=== PATIENT | female | born 1980 | race Caucasian/White ===

== ENCOUNTER 2018-07-30 19:50 | Emergency (ER) | payer SELFPAY ==
[~2018-07-30] VITALS: Ht 162.6 cm; Wt 64.8 kg
[2018-07-30 19:58] VITALS: Ht 162.6 cm; Wt 64.8 kg
[2018-07-30] MEDS ORDERED: DIPHENHYDRAMINE 50 MG INJ IM ONE (22:30)
--- NOTE | 2018-07-30 22:30 | ERD ---
ER Documentation Chief Complaint Chief Complaint neck pain and headache started today HPI 38-year-old female presents history of anxiety and panic attacks. States that she had a panic attack 3 weeks ago and she went to the hospital. They gave her Ativan and she is since run out. She is now experiencing some nausea and vomiting as well as shakiness. States that she feels her highest reading as well. Denies any chest pain, shortness of breath, diaphoresis, wheezing, dyspnea, fevers. She also having trouble sleeping. Denies any suicidal homicidal ideation. Denies any hallucinations. ROS All systems reviewed and are negative except as per history of present illness. Medications Home Meds Active Scripts Zolpidem Tartrate* (Ambien*) 5 Mg Tablet, 5 MG PO HS PRN for INSOMNIA, #7 TAB Prov:ANJU JOHNSON 07/31/18 Hydroxyzine Hcl* (Hydroxyzine Hcl*) 50 Mg Tablet, 50 MG PO Q6 for anxiety, #40 TAB Prov:ANJU JOHNSON 07/31/18 PMhx/Soc Medical and Surgical Hx: pt denies Medical Hx, pt denies Surgical Hx Hx Alcohol Use: No Hx Substance Use: No Hx Tobacco Use: No Smoking Status: Never smoker Physical Exam Vitals Vital Signs Date Temp Pulse Resp B/P (MAP) Pulse Ox O2 O2 Flow FiO2 Time Delivery Rate 07/30/18 99.6 109 18 124/78 98 19:58 (93) Physical Exam Const: No acute distress Head: Atraumatic Eyes: Normal Conjunctiva ENT: Normal External Ears, Nose and Mouth. Neck: Full range of motion. No meningismus. Resp: Clear to auscultation bilaterally Cardio: Regular rate and rhythm, no murmurs Abd: Soft, non tender, non distended. Normal bowel sounds Skin: No petechiae or rashes Back: No midline or flank tenderness Ext: No cyanosis, or edema Neur: Awake and alert Psych: Normal Mood and Affect Result Diagram: 07/30/18 2306 07/30/18 230 Results 24 hrs Laboratory Tests Test 07/30/18 23:06 07/30/18 23:18 07/30/18 23:22 White Blood Count 9.4 10^3/ul Red Blood Count 4.38 10^6/ul Hemoglobin 12.8 g/dl Hematocrit 37.6 % Mean Corpuscular Volume 85.8 fl Mean Corpuscular Hemoglobin 29.2 pg Mean Corpuscular 34.0 g/dl Hemoglobin Concent Red Cell Distribution Width 11.6 % Platelet Count 293 10^3/UL Mean Platelet Volume 10.4 fl Immature Granulocytes % 0.300 % Neutrophils % 65.0 % Lymphocytes % 27.7 % Monocytes % 6.2 % Eosinophils % 0.6 % Basophils % 0.2 % Nucleated Red Blood Cells % 0.0 /100WBC Immature Granulocytes # 0.030 10^3/ul Neutrophils # 6.1 10^3/ul Lymphocytes # 2.6 10^3/ul Monocytes # 0.6 10^3/ul Eosinophils # 0.1 10^3/ul Basophils # 0.0 10^3/ul Nucleated Red Blood Cells # 0.0 10^3/ul Sodium Level 138 mmol/L Potassium Level 3.7 mmol/L Chloride Level 105 mmol/L Carbon Dioxide Level 25 mmol/L Anion Gap 8 Blood Urea Nitrogen 6 mg/dl Creatinine 0.58 mg/dl Est Glomerular Filtrat Rate mL/min > 60 mL/min Glucose Level 113 mg/dl Calcium Level 9.3 mg/dl Total Bilirubin 0.3 mg/dl Direct Bilirubin 0.00 mg/dl Indirect Bilirubin 0.3 mg/dl Aspartate Amino Transf (AST/SGOT) 17 IU/L Alanine 12 IU/L Aminotransferase (ALT/SGPT) Alkaline Phosphatase 73 IU/L Total Protein 8.4 g/dl Albumin 4.2 g/dl Globulin 4.20 g/dl Albumin/Globulin Ratio 1.00 Thyroid Stimulating Hormone (TSH) 0.983 MIU/L Bedside Urine pH (LAB) 6.0 Bedside Urine Protein (LAB) Negative Bedside Urine Glucose (UA) Negative Bedside Urine Ketones (LAB) Negative Bedside Urine Blood Trace-intact Bedside Urine Nitrite (LAB) Negative Bedside Urine Leukocyte Esterase Trace (L POC Beta HCG, Qualitative NEGATIVE Current Medications Medications Dose Sig/Jairo Start Time Status Last (Trade) Ordered Route PRN Stop Time Admin Dose Reason Admin 50 mg ONCE ONCE 07/30/18 DC 07/30/18 Diphenhydrami IM 22:30 22:48 ne HCl 07/30/18 22:31 (Benadryl) Procedures/MDM All labs were within normal limits. I have low suspicion for thyroid storm, acute psychosis, or any other emergent condition. Patient was given Benadryl in the ER and stated that helped her feel more calm. Patient discharged with short course of Ambien for insomnia as well as hydroxyzine to take as needed for anxiety. Patient given list of mental health clinics as well. Patient discharged with strict ER precautions. Patient advised to follow up with PMD. All questions answered at discharge. Departure Diagnosis: Primary Impression: Anxiety disorder Anxiety disorder type: generalized anxiety disorder Qualified Codes: F41.1 - Generalized anxiety disorder Condition: Stable ANJU JOHNSON Jul 30, 2018 22:30
[2018-07-31] MEDS ORDERED: ZOLP5TAB PO (01:10)
[2018-07-31] MEDS ORDERED: HYDR50TA15 PO (01:10)
[2018-07-31 01:18] VITALS: BP 121/86; PULSE 89; RESP 18
== END 2018-07-31 01:19 | disposition home or self-care (01) ==
LOC: FTE 19:50
DX: F41.1 Generalized anxiety disorder (principal)
CPT/HCPCS: 80053; 81003; 81025; 84443; 84703; 85025; 86592; 93005; 96372; 99284; J1200

== ENCOUNTER 2018-08-04 06:47 | Emergency (ER) | payer MEDICAID ==
[~2018-08-04] VITALS: Ht 162.6 cm; Wt 63.6 kg
[~2018-08-04 06:47] MED LIST: HYDR50TA15 PO; ZOLP5TAB PO
[2018-08-04 06:50] VITALS: BP 127/75; PULSE 110; RESP 18; Ht 162.6 cm; Wt 63.6 kg
[2018-08-04] MEDS ORDERED: ACETAMINOPHEN 500 MG TAB PO STA (07:12)
--- NOTE | 2018-08-04 07:42 | ERD ---
ER Documentation Chief Complaint Chief Complaint pt has mendoza and insomia x 2 days HPI Patient is a 38-year-old female with past medical history of anxiety, brought in by , presents to the ER for concerns of a headache and insomnia. Patient was seen here on 07-31-18 for similar concerns of anxiety and insomnia. Patient was prescribed Ambien and hydroxyzine. Patient states she took hydroxyzine yesterday and she was able to sleep for a few hours however she was up again. 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 She states she slept on the couch and woke up to use the restroom. When she went to the restroom she fell. Patient reports having a headache. Patient denies any nausea, vomiting, blurry vision or loss of consciousness. She reports feeling thirsty after taking diphenhydramine. Patient states that the previous medication prescribed to her not helping her. Patient also states she has bilateral hand numbness and tingling. She feels that her hands are "hot". She denies any chest pain, shortness of breath, abdominal pain. Patient denies taking any OCPs, recent surgeries, recent travel, history of DVT or PE. Patient states she does have an appointment at [facility] in 3 days. Patient has no suicidal or homicidal ideations. Patient denies any auditory or visual aldridge ucinations. ROS All systems reviewed and are negative except as per history of present illness. Medications Home Meds Active Scripts Zolpidem Tartrate* (Ambien*) 5 Mg Tablet, 5 MG PO HS PRN for INSOMNIA, #7 TAB Prov:ANJU JOHNSON 07/31/18 Hydroxyzine Hcl* (Hydroxyzine Hcl*) 50 Mg Tablet, 50 MG PO Q6 for anxiety, #40 TAB Prov:ANJU JOHNSON 07/31/18 Allergies Allergies: Coded Allergies: No Known Allergy (Unverified , 08/04/18) PMhx/Soc Medical and Surgical Hx: pt denies Medical Hx, pt denies Surgical Hx Hx Alcohol Use: No Hx Substance Use: No Hx Tobacco Use: No FmHx Family History: No diabetes Physical Exam Vitals Vital Signs Date Temp Pulse Resp B/P (MAP) Pulse Ox O2 O2 Flow FiO2 Time Delivery Rate 08/04/18 99.1 110 18 127/75 100 06:50 (92) Physical Exam GENERAL: Well-developed, well-nourished female. Appears in no acute distress. Speaking in full sentences. HEAD: Normocephalic, atraumatic. EYES: Pupils are equally reactive bilaterally. EOMs grossly intact. No conjunctival erythema. No periorbital ecchymosis or swelling. ENT: Moist mucous membranes. No uvula deviation. No kissing tonsils. No mastoid ecchymosis or swelling. No hemotympanum. NECK: Supple. No meningismus. Normal range of motion of the neck. No cervical midline tenderness. LUNG: Clear to auscultation bilaterally. No rhonchi, wheezing, rales or coarse breath sounds. HEART: Tachycardic. No murmurs, rubs or gallops. BACK: No midline tenderness. EXTREMITIES: Equal pulses bilaterally. No peripheral clubbing, cyanosis or edema. No unilateral leg swelling. NEUROLOGIC: Alert and oriented. Moving all four extremities without any difficulty. Cranial nerves II through XII intact. No pronator drift. Equal systems software designer strength bilaterally. Normal speech. SKIN: Normal color. Warm and dry. No rashes or lesions. PSYCH: Appears anxious. Denies suicidal ideations or homicidal ideations. Results 24 hrs Laboratory Tests Test 08/04/18 07:40 POC Beta HCG, Qualitative NEGATIVE Current Medications Medications Dose Sig/Jairo Start Time Status Last (Trade) Ordered Route PRN Stop Time Admin Dose Reason Admin 1,000 mg ONCE STAT 08/04/18 DC 08/04/18 Acetaminophen PO 07:12 07:27 (Tylenol 08/04/18 07:13 Tab) Procedures/MDM ED COURSE: The patient was stable throughout ED course. I kept the patient and/or family informed of laboratory and diagnostic imaging results throughout the ED course. DIAGNOSTIC IMAGING: Read by radiologist. DIAGNOSTIC IMAGING REPORT Patient: JEFFERY HERNANDEZ : 1980 Age: 38 Sex: F MR #: [id number] DOS: 08/04/18711 Ordering MD: BEBETO CROOK PA-C Location: [facility] Room/Bed: PROCEDURE: CT Brain without contrast. CLINICAL INDICATION: Trauma TECHNIQUE: A CT of the brain was performed on a multidetector CT scanner utilizing axial imaging from the skull base through the vertex without IV contrast. Multiplanar reformatted images were made. Images were reviewed on a PACS workstation. The CTDIvol is 40 mGy and the DLP is 634 mGycm. DICOM images are available. One or more of the following dose reduction techniques were utilized: 1.) Automated exposure control 2.) Adjustment of the mA +/- kV according to patient's size 3.) Use of iterative reconstruction technique. COMPARISON: None FINDINGS: There is no intracranial hemorrhage, mass effect, or midline shift. No extra- axial fluid collection is seen. The ventricles and sulci are normal in size and configuration. The density of the brain is normal, and the villalobos white matter differentiation appears well-preserved. The visualized paranasal sinuses and osseous structures are grossly unremarkable. IMPRESSION: 1. No evidence of acute intracranial pathology. 2. The brain is normal in appearance. .True Zendejas MD, MD Date Time Electronically viewed and signed by .True Zendejas MD, MD on 08/04/2018 08:28 .A/ CC: BEBETO CROOK PA-C [id number] MEDICATIONS GIVEN: Tylenol Patient tolerated medication well with no adverse reactions. Patient reported improvement in pain. MEDICAL DECISION MAKING: This is a 38-year-old female with past medical history of anxiety, brought in by , for concerns of a headache and insomnia. Patient has been seen here for similar concerns of insomnia and anxiety. Patient states she does have an appointment at [facility] in 3 days. Patient denied any suicidal or homicidal ideations. Patient said pain started after she fell earlier today after taking Benadryl. Patient denies any nausea, vomiting or loss of consciousness. Vital signs were reviewed. Patient was afebrile. Patient is not hypoxic. On exam, patient did appear anxious. Patient's neuro exam was normal. CT imaging was unremarkable. See formal report above. Patient was requesting additional medication for insomnia. Given that patient is a fall risk, I will not prescribe any additional medications. Patient already has Ambien and hydroxyzine. Patient was advised that all these medications are extremely sedating that she should take them with caution. At previous visit on 07-30-18, patient did have blood work obtained. No evidence of severe electrolyte abnormalities or anemia were noted. At this time, patient's presentation is most consistent with anxiousness and insomnia. Low suspicion for ACS, arrhythmia, PE, pneumothorax, intracranial hemorrhage, skull fracture, cervical spine injury, acute psychosis, suicidal ideation, homicidal ideation. DISCHARGE: At this time, patient is stable for discharge and outpatient management. I have encouraged the patient to hydrate well. I have instructed the patient to follow- up with his/her primary care physician in 1-2 days. If symptoms persist, patient may need to see a specialist for further examinations and testing. I have instructed the patient to promptly return to the ER at any time for any new or worsening symptoms including increased increased pain, fever, nausea, vomiting, numbness, neck stiffness, visual changes, weakness or LOC. The patient and/or family expressed understanding of and agreement with this plan. All questions were answered. Home care instructions were provided. Disclaimer: Inadvertent spelling and grammatical errors are likely due to EHR/dictation software use and do not reflect on the overall quality of patient care. Also, please note that the electronic time recorded on this note does not necessarily reflect the actual time of the patient encounter. Departure Diagnosis: Primary Impression: Anxiousness Additional Impressions: Head injury Encounter type: initial encounter Qualified Codes: S09.90XA - Unspecified injury of head, initial encounter Insomnia Insomnia type: unspecified Qualified Codes: G47.00 - Insomnia, unspecified Condition: Fair Patient Instructions: Treating Insomnia, Anxiety Reaction Additional Instructions: Llame al doctor MAANA y mirella izabella JULIAN PARA DENTRO DE 1-2 REEVES.Dgale a la secretaria que nosotros le instruimos hacer esta julian.Avise o llame si jackson condicin se empeora antes de la julian. Regresa aqui si peor o no mejor. BEBETO CROOK PA-C Aug 04, 2018 07:42
== END 2018-08-04 09:09 | disposition home or self-care (01) ==
LOC: FTE 06:47
DX: S09.90XA Unspecified injury of head, initial encounter (principal); G47.00 Insomnia, unspecified; F41.9 Anxiety disorder, unspecified; R51 Headache; W18.39XA Other fall on same level, initial encounter; Y92.89 Other specified places as the place of occurrence of the external cause
CPT/HCPCS: 70450; 81025; Z7502; Z7610